=== PATIENT | female | born 1975 | race Caucasian/White ===

== ENCOUNTER 2019-02-03 08:29 | Day surgery (SDC) | payer OTHER, SELFPAY ==
--- NOTE | 2019-01-31 10:59 | PCM.HP.BLA ---
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 Patient is scheduled for a laparoscopic bilateral salpingectomy and Kimber endometrial ablation for desire sterilization and abnormal uterine bleeding heavy menses. Patient denies any chest pain, shortness of breath, dizziness. Patient stands the risk of regret for bilateral salpingectomy. ? PAST?MEDICAL?HISTORY PAST MEDICAL HISTORY Diagnosis Date ? Abnormal Pap smear of cervix ? ? ASCUS ? bicuspid valve ? ? aortic; uses prophylaxis with dental procedures ? Dysmenorrhea ? ? Excessive or frequent menstruation ? ? Heavy periods ? PAST?SURGICAL?HISTORY PAST SURGICAL HISTORY Procedure Laterality Date ? IUD INSERTION (WEED COOKING OPERATOR DEPT)_*FL ? 12/25/2008 ? Mirena-removed ? PAST SURGICAL HISTORY OF ? 2004 ? LASIK EYE SURGERY ? PAST SURGICAL HISTORY OF ? 1985 ? HEART CATHETERIZATION ? FAMILY?HISTORY FAMILY HISTORY Problem Relation Age of Onset ? Lipids Mother ? ? Hypertension Father ? ? Diabetes Maternal Grandmother ? ? Cancer Other ? ? MGGM UTERINE CANCER ? SOCIAL?HISTORY Social History ? Tobacco Use ? Smoking status: Former Smoker ? ? Last attempt to quit: 10/28/2006 ? ? Years since quittin.2 ? Smokeless tobacco: Never Used Substance Use Topics ? Alcohol use: No ? Drug use: No ? CURRENT?MEDICATIONS ? Current Outpatient Medications: ibuprofen (MOTRIN) 600 mg tablet Take 1 tablet by mouth every 6 hours as needed. FOR PAIN. simethicone, chewable (MYLICON) 80 mg chewable tablet Take 1 tablet by mouth every 6 hours as needed. Clobetasol Propionate (TEMOVATE) 0.05 % external solution APPLY TO AFFECTED AREA OF SCALP TWICE A DAY DIRECTED ? No current facility-administered medications for this visit. Allergies As of Date: 01/31/2019 Allergen Noted Reaction SULFA (SULFONAMIDE ANTIBIOTICS) 05/22/2005 Hives ? Fully Assessed 01/31/2019 ? ? REVIEW OF SYSTEMS Abdomen: no pain Bladder: no dysuria.. Expanded ROS: GENERAL: Negative for fever Allergies and current medication updated:Yes ? EXAM: BP 118/78 Wt 127 lb (57.6kg) LMP 01/22/2019 ? GENERAL: pleasant, female in no apparent distress HEENT: Normocephalic, atraumatic, mucus membranes moist and no lesions NECK: Supple and full range of motion DERMATOLOGY: Normal, without lesions, non-icteric and non-hirsute CARDIAC: regular rate and rhythm CHEST: Clear to auscultation Normal inspiratory effort ABDOMEN: soft, non-tender and no masses PELVIC: external genitalia normal, normal Bartholin's glands, urethra, [place]'s glands, no vulvar lesions, no cervical lesions, good vaginal support, physiologic discharge present, normal appearing perineal body and perianal region NEURO: alert and oriented x3,exam grossly non-focal EXTREMITIES: normal ? ASSESSMENT AND PLAN: Encounter Diagnosis ? ? ICD-10-CM ? 1. Excessive or frequent menstruation N92.0 HCG QUAL UR B/O ? ? ENDOMETRIAL BIOPSY ? ? SURGICAL PATHOLOGY ? 2. Pt has been counseled on risks/benefits and alternatives of surgery including but not limited to anesthesia, bleeding, infection, injury to pelvic structures including bowel, bladder, ureters and vessels. Pt wishes to proceed with surgery at this time. 3. Consent signed 4. Motrin and mylicon given- pre op and post op instructions reviewed ? Dolly Loera MD ? Office Visit on 01/31/2019
[2019-02-03] VITALS (7 sets, daily range): BP systolic 116–136; BP diastolic 59–89; PULSE 53–74; RESP 16; TEMP 36.2–37.2; O2SAT 96–100; BMI 23.2
--- NOTE | 2019-02-03 | FALS_PTH ---
PATIENT: CASSY FIELDS LOC: [facility] – [place] U#:[id number] AGE/SX: 43/F ROOM: RE02/03/[address]: Dr. Dolly Loera, MDDOB: 1975 BED: DIS: 02/03/2019 SPEC #: [id number] RECD: 02/03/19 12:55 STATUS: GEOVANNA REBushra #: [id number] MIKE: 02/03/19 00:[address]: Dolly Loera DEPT: SURGICAL PATHOLOGY RECD BY: Magan Jackson ENTERED: 02/03/19 12:55 SP TYPE: FALL TUBES OTHR DR: Dr. Selina Lucero MD Tissues: Fallopian tube Procedures: Surgery Specimen Level II HEADER OPERATION: Laparoscopic salpingectomy PRE-OP DIAGNOSIS: Sterilization TISSUE SUBMITTED: Bilateral fallopian tubes MICROSCOPIC DIAGNOSIS Bilateral fallopian tubes, salpingectomy: Bilateral fallopian tubes including fimbrial ends, no pathologic diagnosis. SJ:bebe 02/04/19 MICROSCOPIC DESCRIPTION Slides are reviewed. GROSS DESCRIPTION Received is one container labeled with the patient's name and designated bilateral fallopian tubes. The specimen consists of bilateral fallopian tubes including fimbrial ends measuring 5.5 cm in length and 0.7 cm in diameter and 4.5 cm in length and 0.7 cm in diameter. Sections do not reveal any mass lesion. The fallopian tubes are not identified as right or left. Sections reveal unremarkable cut surfaces. A detached segment of fallopian tube is also noted measuring 3 cm in length and 0.5 cm in diameter and two fragments of tissue are also noted consistent with fimbrial end measuring 1.5 x 1 x 0.5 cm. Slot Floor Supervisor sections are submitted in two cassettes with each cassette containing one fallopian tube. Cassette 2 also contains the detached segment of fallopian tube and two fragments of fallopian tube consistent with fimbrial end. / KAILA:bebe 02/03/19 TC:4 CPT: 93791 x2
[2019-02-03 09:20] LABS: Hematocrit 40.6 % (37-47); Hemoglobin 14.1 g/dL (12.0-15.0); Mean Corp Hgb Conc 34.7 g/dL (32-36); Mean Corpuscular Volume 95.1 fL (81-99); Mean Platelet Vol. 9.7 fl (6.2-12.0); Platelet Count 184 K/mm3 (150-450); RBC Distribution Width CV 11.9 % (11.6-14.6); RBC Distribution Width SD 40.2 fl (35.1-43.9); Red Blood Count 4.27 M/mm3 (4.2-5.4); White Blood Count 6.5 K/mm3 (4.4-11.0)
[2019-02-03 09:28] LABS: Internal QC Validated? YES +Cl - CLEAR BKGD; Pregnancy, Urine Negative Negative
[2019-02-03] MEDS: Lactated Ringers 1,000 ML 100 ML IV (09:45)
[2019-02-03] MEDS: Bupivacaine Mpf 0.5% 30 ML VIAL (10:33)
--- NOTE | 2019-02-03 10:39 | PCM.OPRPT ---
Report of Operation Date of Procedure: 02/03/19 Pre-Operative Diagnosis: AUB, desires sterilization Post-Operative Diagnosis: same Surgery/Procedure Performed:: Hysteroscopy, Kimber ablation, Laparoscopic Bilateral salpingectomy Description of Surgical Findings:: Normal tubes and ovaries. No pelvic adhesions. Both tubal ostia visualized on hysteroscopy. Uterus sounded to 9cm and endocervical canal 4cm. 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 She was then placed in the [facility] stirrups and she was prepped and draped in normal sterile fashion. Bladder was drained prior to the start of procedure approximately 50 cc of clear yellow urine was expelled. At this time attention was turned to the vaginal portion where weighted speculum placed at posterior fornix vagina single-tooth tenaculum was used to gently grasp the internal the cervix. uterus was gently sounded to approximately 9cm. Cervical canal measured 4 cm. Hysteroscopy was performed using normal saline as a distention medium. Upon hysteroscopy there were no gross abnormalities. Both tubal ostia were visualized. At this time the Kimber ablation device was opened it was set to the appropriate settings at 5 cm good cervical seal was appreciated and the device cycled 420 seconds without interruption. The device was then removed and noted to be intact.Uterine manipulator was placed without difficulty. Legs then placed in parallel with the abdomen the tenaculum and the weighted speculum were removed. 2 towel clamps were placed adjacent to umbilicus. After Marcaine was injected atumbilicus a small incision was made and a 5 mm trocar was placed under direct visualization. CO2 gas was used to insufflate the intra-abdominal cavity. Upon inspection no gross abnormalities uterus tubes and ovaries appeared to be normal. At this time then the LLQ and RLQ ports were placed again Marcaine was injected small incision was made a knife and the 5 mm trocars were placed. At this time then tubes were traced back to the fimbriated ends. Ligasure was used to coagulate and ligate along mesosalpynx bilaterally until tubes removed completely. Good hemostasis was appreciated. At this time procedure was deemed complete successful. The gas was desufflated on from the intra-abdominal cavity. The trochars were removed. Skin was closed using 4-0 Monocryl in a subcutaneous fashion. Dermabond glue was placed. Instrument lap and needle counts were correct ?2. The uterine manipulator was removed. Vaginal sweep was performed it was negative. There were no complications anticipated normal postoperative course for this patient. Grafts/Implants Used: none - Complications none - Admit VTE Documentation VTE Present on Admission: Yes VTE Mechan Device Prophylaxis: SCD's VTE Pharm Prophylaxis ordered?: Yes
--- NOTE | 2019-02-03 10:44 | DCINST_ITS ---
Discharge Diet: No Restrictions, - - Increase fluid intake for 48 hours. Discharge Activity: Return to Normal Activity, May Drive - when you are no longer taking narcotic pain medications., May Shower, May Take a Tub Bath - in 7 days., - - Ambulate often the next week after surgery. May resume sexual activity in: 2 weeks Lifting Restrictions: 20 Additional Activity Instructions:: Nothing in the vagina for the next 5 days. Call your doctor if your incision/area has: Continuous Slow Oozing, Sudden Increased Bleeding, Increased Pain/ Swelling, Increased Redness, Foul Smelling Discharge, Swelling at the incision site Call your doctor if you observe: Fever of 101 or Higher, Using more than one pad per hour Cleanse incision/area with: - - you have skin glue over incisions- do not pick off. You may let soap and water run over incision sites and dab dry. Allergies/Adverse Reactions: Allergies Sulfa (Sulfonamide Antibiotics) Allergy (Verified 02/03/19 09:20) Hives Medications to take at Discharge Clobetasol Propionate/Emoll [Clobetasol Emollient 0.05% Crm] 30 gm TP PRN PRN 02/01/19 Primary Care Physician: Selina Lucero MD [Primary Care Provider] - Test Results: Test results from this visit will be discussed in further detail at your follow- up appointment, if applicable. Please Follow Up With: Dolly Loera MD When: 2 weeks
== END 2019-02-03 13:12 | disposition home or self-care (01) ==
LOC: SDC 08:31 → AC 08:33
PROVIDERS: Family Provider Family Medicine; PCP Family Medicine; Referring Provider Obstetrics & Gynecology; Visit Provider Obstetrics & Gynecology
PROC: (CPT 58661; principal; 2019-02-03 10:00)
PROC: 0U5B8ZZ Destruction of Endometrium, Via Natural or Artificial Opening Endoscopic (ICD-10-PCS; CPT 58558; 2019-02-03 10:00)
DX: Z30.2 Encounter for sterilization (principal); N92.0 Excessive and frequent menstruation with regular cycle; N94.6 Dysmenorrhea, unspecified; Q23.1 Congenital insufficiency of aortic valve; Z87.891 Personal history of nicotine dependence
CPT/HCPCS: 58563; 58661; 81025; 85027; 88302; J7120; J2405